=== PATIENT | female | born 1980 | race Two or more races ===

== ENCOUNTER 2021-04-08 20:01 | Emergency (ER) | payer BC ==
[~2021-04-08] VITALS: Ht 165.1 cm; Wt 46.0 kg
--- NOTE | 2021-04-08 20:14 | PHYS DOC ---
General Adult EDM: Chief Complaint: FEVER HPI: HPI: "I ve had some shortness of breath..fever.. chills. Nausea and vomiting"- Daughter interpretation for her, apparently at patient's request Patient is a 41 year old [place] female who presents with above hx and complaints chills, malaise, nausea, vomiting and dyspnea. Patient localizes some generalized abdomen pain. No history of recent bad food. No history recent travel. No specific ill contacts. Patient has been exposed to her son who has had recent episode of gastroenteritis who does not seem to be very ill. Patient denies any trauma. No history immunosuppression. Pt. follows with [facility] for discomfort. Review of Systems: Review of Systems: Constitutional: History of fever or chills Eyes: Denies change in visual acuity HENT: Denies nasal congestion or sore throat Respiratory: History of shortness of breath after vomiting Cardiovascular: Denies chest pain or edema GI: History of abdominal pain, nausea, vomiting,. Patient denies bloody stools or diarrhea : Denies dysuria Musculoskeletal: Denies back pain or joint pain Integument: Denies rash Neurologic: Denies headache, focal weakness or sensory changes Endocrine: Denies polyuria or polydipsia Lymphatic: Denies swollen glands Psychiatric: Denies depression or anxiety Family History: Family History: Son has had acute gastroenteritis type presentation viral syndrome Current Medications: Current Meds: See nursing for home meds Allergies: Allergies: No known drug allergies Physical Exam: PE: Constitutional: Moderate acute distress, non-toxic appearance. [] HENT: Normocephalic, atraumatic, bilateral external ears normal, oropharynx dry,, no oral exudates, nose normal. [] Eyes: PERRLA, EOMI, conjunctiva normal, no discharge. [] Neck: Normal range of motion, no tenderness, supple, no stridor. [] Cardiovascular:Heart rate regular rhythm, no murmur [] Lungs & Thorax: Bilateral breath sounds equal apex with few scattered wheezes auscultation [] Abdomen: Bowel sounds hyperactive, , soft, mild epigastric and periumbilical tenderness, no masses, no pulsatile masses. No true rebound pain Skin: Warm, dry, no erythema, no rash. [] Back: No tenderness, no CVA tenderness. [] Extremities: No tenderness, no cyanosis, no clubbing, ROM intact, no edema. No psoas findings. Neurologic: Alert and oriented X 3, normal motor function, normal sensory function, no focal deficits noted. [] Psychologic: Affect anxious,, mood normal. [] Current Patient Data: Labs: Note labs not crossing over my review of significant labs shows negative strep flu and Covid testing. Troponin nl 0.017. Mild leukocytosis 15.2 with elevated segs 86 normal hemoglobin 13.7 and normal platelets. 294 EKG: EKG: Patient declined [] Pt. then consented to EKG. My interpretation EKG shows a sinus rhythm at 86 bpm. Mild leftward axis. Some contour abnormalities with but no findings of acute STEMI or contralateral changes. Time of EKG is 2133 hrs. Radiology/Procedures: Radiology/Procedures: Patient declined [] Heart Score: C/O Chest Pain: No (Epigastric tenderness) HEART Score for Chest Pain: HEART Score for Chest Pain Response (Comments) Value History Slighlty/Non-Suspicious 0 ECG Normal 0 Age < 45 0 Risk Factors No Risk Factors 0 Troponin < Normal Limit 0 Total 0 Risk Factors: Risk Factors: DM, Current or recent (<one month) smoker, HTN, HLP, family history of CAD, obesity. Risk Scores: Score 0 - 3: 2.5% MACE over next 6 weeks - Discharge Home Score 4 - 6: 20.3% MACE over next 6 weeks - Admit for Clinical Observation Score 7 - 10: 72.7% MACE over next 6 weeks - Early Invasive Strategies Course & Med Decision Making: Course & Med Decision Making Pertinent Labs and Imaging studies reviewed. (See chart for details) Patient's symptoms improved and requesting discharge home. Patient recommended to stay on a clear fluid diet only for the next 48 hours no solids. No milk pro ducts. Push clear fluids. Tylenol and ibuprofen for discomfort. Follow-up with her primary care. Return if any concerns. Self isolate until Covid results are known. Return if any concerns. Impression: 1. Viral syndrome 2. Acute gastroenteritis [] Dragon Disclaimer: Dragon Disclaimer: This electronic medical record was generated, in whole or in part, using a voice recognition dictation system. Dragon Disclaimer This chart was dictated in whole or in part using Voice Recognition software in a busy, high-work load, and often noisy Emergency Department environment. It ma y contain unintended and wholly unrecognized errors or omissions. QUIN TORRE MD Apr 08, 2021 20:14
[2021-04-08] MEDS ORDERED: ONDANSETRON PF 4 MG/2 ML VIAL. ONE (21:27)
[2021-04-08] MEDS ORDERED: FAMOTIDINE 20 MG/2 ML VIAL ONE (21:27)
[2021-04-08] MEDS ORDERED: IV RINGERS SOLUTION,LACTATED 1,000 ML IV SCH (21:30)
[2021-04-08 21:40] LABS: BASO % 0 % (0-3); EOS # 0.1 x10^3/uL (0.0-0.7); EOS % 1 % (0-3); HEMATOCRIT 41.9 % (36.0-47.0); HEMOGLOBIN 13.7 g/dL (12.0-15.5); LYMPH # 0.5 x10^3/uL (1.0-4.8); LYMPH % 4 % (24-48); MEAN CORPUSCULAR HEMOGLOBIN 29 pg (25-35); MEAN CORPUSCULAR HGB CONC 33 g/dL (31-37); MEAN CORPUSCULAR VOLUME 89 fL (79-100); MONO # 0.7 x10^3/uL (0.0-1.1); MONO % 4 % (0-9); NEUT # 13.9 x10^3uL (1.8-7.7); NEUT % 91 % (31-73); PLATELET COUNT 294 x10^3/uL (140-400); RED BLOOD COUNT 4.73 x10^6/uL (3.50-5.40); WHITE BLOOD COUNT 15.2 x10^3/uL (4.0-11.0)
[2021-04-08 21:45] LABS: CALCIUM 8.9 mg/dL (8.5-10.1); CREATININE 0.8 mg/dL (0.6-1.0); GFR 79.4
[2021-04-08] MEDS ORDERED: ONDANSETRON PF 4 MG/2 ML VIAL. IVP ONE (22:00)
[2021-04-08] MEDS ORDERED: FAMOTIDINE 20 MG/2 ML VIAL IVP ONE (22:00)
[2021-04-08 22:01] LABS: DIRECT BILIRUBIN 0.2 mg/dL (0.0-0.2); MAGNESIUM 2.1 mg/dL (1.8-2.4); TOTAL BILIRUBIN 0.7 mg/dL (0.2-1.0); TOTAL PROTEIN 7.9 g/dL (6.4-8.2)
[2021-04-08 22:08] LABS: % BANDS 5 % (0-9); % EOS 2 % (0-5); % LYMPHS 4 % (24-48); % MONOS 3 % (0-10); % SEGS 86 % (35-66); PLT ESTIMATE ADEQUATE (ADEQUATE)
[2021-04-08 22:12] LABS: INFLUENZA A PATIENT NEGATIVE (NEGATIVE); INFLUENZA B PATIENT NEGATIVE (NEGATIVE)
--- NOTE | 2021-04-08 22:55 | EKG ---
[address] [address] Test Date: 2021-04-08 Test Time: 21:33:45 Pat Name: THIAGO KING Department: Room: Gender: F Logistics Management Specialist: HOPE : 1980 Requested By: QUIN TORRE Order Number: [id number] Reading MD: Measurements Intervals [place] Rate: 86 P: -51 AL: 144 QRS: -45 QRSD: 70 T: -55 QT: 366 QTc: 441 Interpretive Statements SINUS RHYTHM ABNORMAL LEFT AXIS DEVIATION QRS(T) CONTOUR ABNORMALITY CONSIDER INFERIOR INFARCT ABNORMAL ECG RI6.02 No previous ECG available for comparison
[2021-04-08 23:31] LABS: BILIRUBIN,URINE NEG (NEG); CLARITY,URINE CLEAR; COLOR,URINE YELLOW; GLUCOSE,URINE NEG (NEG)
[2021-04-08 23:32] LABS: BACTERIA,URINE FEW /HPF (0-FEW); NITRITE,URINE NEG (NEG); SQUAMOUS EPITHELIAL CELL,UR MOD /LPF; UROBILINOGEN,URINE 0.2 mg/dL (0.2 mg/dL)
[2021-04-08 23:56] VITALS: BP 103/55
--- NOTE | 2021-04-10 08:57 | NUR ---
IP: Attempted to notify patient of negative COVID19 test result. Unable to leave voicemail message as voicemail box is not setup yet.
--- NOTE | 2021-04-10 16:27 | NUR ---
IP: Second attempt to notify patient of negative COVID19 test result. No answer. Unable to leave a message due to voicemail box not setup.
--- NOTE | 2021-04-11 12:41 | NUR ---
IP: Third attempt to notify patient of negative COVID19 test result. No answer, unable to leave a message as it states voicemail box has not been setup yet.
== END 2021-04-08 23:57 | disposition home or self-care (01) ==
LOC: ER 20:01
DX: B34.9 Viral infection, unspecified (principal); K52.9 Noninfective gastroenteritis and colitis, unspecified; Z20.822 Contact with and (suspected) exposure to COVID-19
CPT/HCPCS: 36415; 80048; 80076; 81001; 81025; 82150; 82550; 83690; 83735; 83880; 84443; 84484; 84702; 85007; 85025; 87070; 87804; 87880; 93005; 96361; 96374; 96375; 99284; C9803; J2405; J3490; J7120; U0003

== ENCOUNTER 2021-06-14 10:55 | Emergency (ER) | payer BC ==
[~2021-06-14] VITALS: Ht 165.1 cm; Wt 47.1 kg
[2021-06-14 11:21] VITALS: BP 117/72
[2021-06-14] MEDS: KETOROLAC 60 MG/2 ML VIAL. IM ONE (11:30)
[2021-06-14] MEDS: ORPHENADRINE CITRATE 60 MG/2 ML VIAL. IM ONE (11:30)
[2021-06-14] MEDS ORDERED: ORPH-16 PO (11:52)
--- NOTE | 2021-06-14 11:53 | PHYS DOC ---
Past History Past Surgical History: No Surgical History (MARISELA PAIGE) Alcohol Use: None (MARISELA PAIGE) General Adult EDM: Chief Complaint: Neck Pain HPI: HPI: Patient is a 41 year old female who presents with neck stiffness and pain. Patient rates her pain as severe and prohibits her from moving her neck. She also reports pain and paresthesias radiating down her right upper extremity. Patient has had no prior surgeries, has not had any trauma or injury and has n ever had pain like this before. She denies headache and back pain associated with her neck pain. Patient reports the pain is worse upon waking in the morning. She denies fevers, chills, vision changes, visual field deficits, weakness. There was a language barrier during interview and exam, aided by her at bedside. (MARISELA PAIGE) Review of Systems: Review of Systems: Constitutional: See HPI Eyes: See HPI HENT: Denies nasal congestion or sore throat Respiratory: Denies cough or shortness of breath Cardiovascular: Denies chest pain or edema Musculoskeletal: Denies back pain or joint pain Integument: Denies rash or other skin lesions Neurologic: See HPI (MARISELA PAIGE) Allergies: Allergies: Allergies Coded Allergies Type Severity Reaction Last Updated Verified No Known Drug Allergies 04/08/21 No (MARISELA PAIGE) Physical Exam: PE: Constitutional: Well developed, well nourished, no acute distress, non-toxic appearance. HENT: Normocephalic, atraumatic, bilateral external ears normal, oropharynx moist, external nose without obvious deformity or discharge. Eyes: PERRLA, EOMI, conjunctiva normal, no discharge. Neck: Passive range of motion intact, active range of motion limited secondary to pain, no step-offs, no midline tenderness, significant paraspinal tenderness at the level of mid cervical spine. Cardiovascular: Heart rate regular rhythm, no murmur. Lungs & Thorax: Bilateral breath sounds clear to auscultation. Skin: Warm, dry, no erythema, no rash. Neurologic: Alert and oriented x4, motor function grossly intact, sensory function grossly intact, no focal deficits noted. (MARISELA PAIGE) Heart Score: C/O Chest Pain: No (MARISELA PAIGE) Course & Med Decision Making: Course & Med Decision Making Pertinent Labs and Imaging studies reviewed. (See chart for details) Patient exam significant for muscle spasm bilaterally the level of mid cervical spine. Patient has no trauma or prior injury, so at this time we will treat for muscle spasm only. Advised patient that she should follow with pain management should she continue to have pain and other symptoms, as she may need MRI imaging. Patient advised to continue taking muscle relaxer every 12 hours as well as [id number] NSAID for pain and inflammation. Patient and her at bedside understand and are agreeable to discharge plan. (MARISELA PAIGE) Course & Med Decision Making I was the Attending physician on the above date of service of this patient. This patient was evaluated, examined, treated, and dispositioned from the emergency department by the mid-level practitioner. Although I was working at the time , no assistance was requested. Electronically signed, Rishi Naik DO (RISHI NAIK DO) Sergio Disclaimer: Dragnicole Disclaimer: This electronic medical record was generated, in whole or in part, using a voice recognition dictation system. (MARISELA PAIGE) Departure Departure: Impression: Primary Impression: Muscle spasms of neck Disposition: HOME / SELF CARE / HOMELESS Condition: STABLE Referrals: MICHAELA ONEAL APRN (PCP) KURT NARANJO MD Additional Instructions: Take the muscle relaxer every 12 hours as needed for muscle spasm. Take over the counter NSAIDS (ibuprofen or naproxen) per label instructions as well. If your symptoms do not improve in a few days, call Dr. Naranjo for pain management consult. She will be able to order tests if needed for further evaluation. Return to the emergency department if your pain worsens or you develop new symptoms, especially weakness, loss of function or worsening numbness. Scripts Orphenadrine Citrate (ORPHENADRINE CITRATE) 100 Mg Tablet.er 1 TAB PO PRN Q12HR PRN for MUSCLE SPASMS, #14 TAB 1 Refill Prov: MARISELA PAIGE 06/14/21 MARISELA PAIGE Jun 14, 2021 11:53 RISHI NAIK DO Jun 17, 2021 07:50
== END 2021-06-14 12:06 | disposition home or self-care (01) ==
LOC: ER 10:55
DX: M62.838 Other muscle spasm (principal); M43.6 Torticollis
CPT/HCPCS: 81025; 96372; 99284; J1885; J2360